=== PATIENT | female | born 1980 | race Caucasian/White ===

== ENCOUNTER 2018-01-30 16:12 | Emergency (ER) | payer MEDICAID, OTHER ==
[2018-01-30 16:25] VITALS: RESP 18; TEMP 98.4; O2SAT 99
[2018-01-30] MEDS ORDERED: Albuterol 0.083% Inhal Sol (2.5 mg/3 mL) UD INH STA (17:16)
[2018-01-30] MEDS ORDERED: Albuterol 0.083% Inhal Sol (2.5 mg/3 mL) UD ONE (17:23)
--- NOTE | 2018-01-30 17:47 | ED PDOC ---
History of Present Illness History of Present Illness: 37 y/o female presents to the ED complaining of chest pain, onset 6-8 months ago. Patient states for the past 6-8 months, she has had non-radiating mid- sternal chest pain. Patient reports pain comes right before an anxiety attack and resolves when the attack resolves. Patient additionally complains of cough, nasal congestion, and sore throat. Reports that now she has chest pain present only with coughing. Denies fever, shortness of breath, hemoptysis, palpitations , suicidal ideation, homicidal ideation, hallucinations, history of DVT, and history of PE. PMD: None Provided HPI: Influenza Time Seen by Provider: 01/30/18 16:25 Chief Complaint: Cough, Cold, Congestion Chief Complaint (Provider): Chest Pain History Per: Patient Exam Limitations: no limitations Onset/Duration Of Symptoms: Days Past Medical History Reviewed: Historical Data, Nursing Documentation, Vital Signs Vital Signs: Last Vital Signs Temp 98.4 F 01/30/18 16:21 Pulse 96 H 01/30/18 16:21 Resp 18 01/30/18 16:21 BP 106/71 01/30/18 16:21 Pulse Ox 99 01/30/18 16:21 - Medical History PMH: Anxiety, Bronchitis, Depression, Gastritis, Migraine (LAST 07/10/14) Denies: Pulmonary Embolism - Surgical History Surgical History: No Surg Hx - Family History Family History: States: Unknown Family Hx - Immunization History Hx Tetanus Toxoid Vaccination: No Hx Influenza Vaccination: No Hx Pneumococcal Vaccination: No - Home Medications Home Medications: Ambulatory Orders Medication Instructions Recorded Mirtazapine [Remeron] 30 mg PO HS 07/11/14 Pantoprazole Sodium [Protonix] 40 mg PO DAILY 11/14/15 Vistaril 11/14/15 clonazePAM 11/14/15 oxyCODONE/Acetaminophen [Percocet 1 tab PO QID PRN #14 tab 11/14/15 5/325 mg Tab] Albuterol HFA [Ventolin HFA 90 2 puff IH [id number] PRN #1 each 01/30/18 mcg/actuation (8 g)] Azithromycin [Zithromax] 250 mg PO DAILY #6 tab 01/30/18 Promethazine DM [Phenergan DM 5 - 10 ml PO Q8 PRN #120 ml 01/30/18 Syrup] - Allergies Allergies/Adverse Reactions: Allergies Allergy/AdvReac Type Severity Reaction Status Date / Time No Known Allergies Allergy Verified 01/30/18 16:21 Review of Systems ROS Statement: Except As Marked, All Systems Reviewed And Found Negative ENT: Positive for: Nose Congestion, Throat Pain Cardiovascular: Positive for: Chest Pain (non-radiating, mid-sternal) Respiratory: Positive for: Cough Physical Exam - Reviewed Nursing Documentation Reviewed: Yes Vital Signs Reviewed: Yes - Physical Exam Appears: Positive for: Well, Non-toxic, No Acute Distress Head Exam: Positive for: ATRAUMATIC, NORMAL INSPECTION, NORMOCEPHALIC Skin: Positive for: Normal Color, Warm, Dry. Negative for: Rash Eye Exam: Positive for: Normal appearance, EOMI, PERRL ENT: Positive for: Pharyngeal Erythema, Other (tonsillar erythema). Negative for: Tonsillar Exudate, Tonsillar Swelling Neck: Positive for: Normal, Painless ROM Cardiovascular/Chest: Positive for: Regular Rate, Rhythm, Chest Non Tender. Negative for: Murmur Respiratory: Positive for: Normal Breath Sounds. Negative for: Respiratory Distress Neurologic/Psych: Positive for: Alert, Oriented. Negative for: Aphasia, Facial Droop Medical Decision Making Medical Decision Making: Time: 1715 Plan: -- EKG -- ED Urine -- CXR (PA&LAT) -- [Albuterol 0.083% Inhal Heidy 2.5mg/3ml UD] 2.5 g INH -- Influenza A B -- Rapid Strep Group A Antigen -- Tylenol 975 mg PO Time: 1812 CXR RESULTS FINDINGS: LUNGS: No active pulmonary disease. PLEURA: No significant pleural effusion identified. No pneumothorax apparent. CARDIOVASCULAR: Normal. OSSEOUS STRUCTURES: No significant abnormalities. VISUALIZED UPPER ABDOMEN: Normal. OTHER FINDINGS: None.]\ IMPRESSION: No active disease. Scribe Attestation: Documented by Marlee Velázquez, acting as a scribe for Leonel Jauregui PA-C. Provider Scribe Attestation: All medical record entries made by the Scribe were at my direction and personally dictated by me. I have reviewed the chart and agree that the record accurately reflects my personal performance of the history, physical exam, medical decision making, and the department course for this patient. I have also personally directed, reviewed, and agree with the discharge instructions and disposition. - ECG ECG Rhythm: Positive for: Sinus Rhythm. Negative for: ST/T Changes Rate: 99 O2 Sat by Pulse Oximetry: 99 (RA) Disposition - Clinical Impression Clinical Impression: Acute bronchitis - Patient ED Disposition Is Patient to be Admitted: No - Disposition Referrals: [facility] [place] [Outside] [facility] [Outside] Disposition: Routine/Home Disposition Time: 19:00 Condition: STABLE Additional Instructions: Follow up with PMD for further evaluation. Return to ED immediately if symptoms worsen. Prescriptions: Albuterol HFA [Ventolin HFA 90 mcg/actuation (8 g)] 2 puff IH [id number] PRN #1 each PRN Reason: wheezing or cough Azithromycin [Zithromax] 250 mg PO DAILY #6 tab Promethazine DM [Phenergan DM Syrup] 5 - 10 ml PO Q8 PRN #120 ml PRN Reason: Cough Instructions: Acute Bronchitis, Adult (DC) Forms: [employer] (Welsh), [facility] ED School/Work Excuse Print Language: CHINESE
--- NOTE | 2018-01-30 18:18 | RAD ---
HISTORY: cough COMPARISON: Chest radiograph dated 05/09/2014 TECHNIQUE: Chest PA and lateral FINDINGS: LUNGS: No active pulmonary disease. PLEURA: No significant pleural effusion identified. No pneumothorax apparent. CARDIOVASCULAR: Normal. OSSEOUS STRUCTURES: No significant abnormalities. VISUALIZED UPPER ABDOMEN: Normal. OTHER FINDINGS: None. IMPRESSION: No active disease.
[2018-01-30 19:34] VITALS: BP 110/52
[2018-01-30 22:48] VITALS: PULSE 99
--- NOTE | 2018-02-02 16:41 | CARD ---
APPROVED REPORT Date of service: 01/30/2018 EKG Measurement Heart [id number] <Conclusion> Normal sinus rhythm Normal ECG
== END 2018-01-30 19:34 | disposition home or self-care (01) ==
LOC: H.ER 16:12
DX: J20.9 Acute bronchitis, unspecified (principal); Z86.59 Personal history of other mental and behavioral disorders